=== PATIENT | female | born 1975 | race Hispanic/Latino ===

== ENCOUNTER → 2023-12-24 | Outpatient (CLI) | payer OTHER ==
[~2023-12-24] MED LIST: IOHEXOL-350 75 ML VIAL IV ONE
== END | disposition home or self-care (01) ==
LOC: RAH 09:17
PROVIDERS: ATTEND Internal Medicine Gastroenterology
DX: K76.89 Other specified diseases of liver (principal); M47.815 Spondylosis without myelopathy or radiculopathy, thoracolumbar region; R10.13 Epigastric pain; R10.11 Right upper quadrant pain
CPT/HCPCS: 74177; Q9967